=== PATIENT | male | born 1970 | race Caucasian/White ===

== ENCOUNTER 2019-08-03 12:18 | Inpatient (IN) ==
[2019-08-03] MEDS ORDERED: SODIUM CHLORIDE 0.9% IVPB ONE (14:44)
[2019-08-03] MEDS ORDERED: ANTIVENIN CROTALIDAE FAB IVPB ONE (14:44)
[2019-08-03] MEDS ORDERED: *HR* FentaNYL (PF) 100 MCG/2 ML VIAL IVP PRN (14:52)
[2019-08-03 15:22] LABS: Basophils % 0.3 %; Hematocrit 42.1 % (37.5-50.1); Hemoglobin 14.7 g/dL (12.9-16.9); Immature Granulocytes % 0.2 % (0-4); Lymphocytes # 0.7 K/mcL (0.6-4.6); Lymphocytes % 5.4 %; Mean Corpuscular HGB Conc 34.9 g/dL (31.6-35.5); Mean Corpuscular Hemoglobin 31.2 pg (28.0-33.3); Mean Corpuscular Volume 89.4 fL (83.0-100.0); Mean Platelet Volume 9.3 fL (9.4-12.4); Monocytes # 0.1 K/mcL (0.0-1.3); Monocytes % 0.7 %; Neutrophils # 11.5 K/mcL (1.6-8.9); Platelet Count 274 K/mcL (140-400); Red Blood Count 4.71 M/mcL (4.19-5.50); Red Cell Distribution Width 12.7 % (11.5-14.5); Segmented Neutrophils % 93.4 %; White Blood Count 12.3 K/mcL (4.3-11.1)
[2019-08-03] MEDS ORDERED: EPINEPHrine 1 MG/ML VIAL IM PRN (15:23)
[2019-08-03 15:33] LABS: Prothrombin Time 11.3 Seconds (9.4-12.1)
--- NOTE | 2019-08-03 16:35 | Orthopedic Consult Note ---
Date of Encounter: 08/03/19 Time of Encounter: 16:24 Assessment and Plan (1) Paresthesias in right hand Current Visit: Yes Status: Acute (2) Venomous snake bite Current Visit: Yes Status: Acute Qualifiers: Encounter type: initial encounter Injury intent: accidental or unintentional Qualified Code(s): T63.001A - Toxic effect of unspecified snake venom, accidental (unintentional), initial encounter History of Present Illness Chief complaint: right finger snake bite HPI: Mr. Smith is a 49 year old male presented to [facility] after being bitten by confirmed Copperhead snake [id number] this morning while working on his boss's property in [place], [place]. He states they immediately headed to the hospital and he received first dose of antivenom at noon. He then was transferred here to [facility] and is about to receive second antivenom dose. He states that he has history of meth use last used 3 weeks ago. He states that he drank 2 tallboys last night, but has been NPO since bite this morning with exception of ice chips. Patient denies history of snake bites Denies recent tatoos Denies history of IV drug abuse. *Nurse states on arrival at 2pm that patient had sensation to finger and had a white quentin to the finger. States darkening of tissue is rapidly onset over the past 2 hours. On exam right index finger with blackened tissue noted to DIP joint palmar aspect. Blood filled appearing blister noted to lateral right index finger with puncture site centrally. Blister measures appx 1.5cm diameter. Blackened tissue with ecchymosis extending circumferentially from blister nonblanching discoloration appx 1cm out from blister margin. Patient states feels pressure, but no fine touch to distal phalanx and middle phalanx. Exquisitely tender to palpation of the proximal phalanx of the finger. Motion very limited on active and passive. Tender to palpation the palm and volar wrist centrally. No discoloration noted with exception as noted above to distal and middle phalanx. No drainage noted. Wrist motion intact. Elbow motion intact Patient with recent confirmed copperhead snake bite to the right index finger Concern for active tissue necrosis despite antivenom administration Case discussed with Dr. Raphael Continue NPO Case booked with surgery CHG bath ordered. Possible incision and drainage of the finger - await obtaining consent until Dr. Raphael able to personally speak with and examine patient Thank you for consultation. Please reach out with any further questions or concerns regarding patient's orthopedic health. Past Med Surg Social Fam HX - Past Medical History Medical history: kidney stones, thyroid disease Additional medical history: pancreatitis Psychiatric history: PTSD - Past Surgical History Surgical History: orthopedic, other (Lumbar laminectomy) Additional surgical history: Laminectomy low back - Social History Smoking Status: Current every day smoker Packs per day: 11/26 Smokeless Tobacco Status: No Alcohol use: none Drug use: marijuana, methamphetamine Medications and Allergies Levothyroxine [Synthroid] 88 mcg PO DAILY 08/03/19 [History] Allergy/AdvReac Type Severity Reaction Status Date / Time No Known Allergies Allergy Verified 06/09/17 23:43 All Systems Reviewed: The remainder of the systems were reviewed and are negative Physical Exam - Constitutional Vitals: Temp Pulse Resp BP Pulse Ox 97.7 F 84 17 147/93 95 08/03/19 16:13 08/03/19 16:13 08/03/19 16:13 08/03/19 16:13 08/03/19 16:13 Results - Labs Result Diagrams: 08/03/19 15:08 Labs: Abnormal lab results WBC 12.3 K/mcL (4.3-11.1) H 08/03/19 15:08 MPV 9.3 fL (9.4-12.4) L 08/03/19 15:08 Neutrophils # 11.5 K/mcL (1.6-8.9) H 08/03/19 15:08 APTT 38.0 Seconds (26.0-36.0) H 08/03/19 15:08 Fibrinogen 431 mg/dL (169-393) H 08/03/19 15:08 H & H 08/03/19 Range/Units 15:08 Hgb 14.7 (12.9-16.9) g/dL Hct 42.1 (37.5-50.1) % All other labs normal. Consult Discharge Plan - Plan Referrals: NONE,PCP [Primary Care Provider] -
[2019-08-03] MEDS ORDERED: Naloxone 0.4 MG/ML INJ IVP PRN (16:52)
[2019-08-03] MEDS ORDERED: Ondansetron 4 MG/2 ML VIAL IVP PRN (16:52)
[2019-08-03] MEDS ORDERED: Acetaminophen 325 MG TABLET PO PRN (16:52)
[2019-08-03] MEDS ORDERED: Ringers Solution, Lactated 1,000 ML IVC SCH (17:00)
--- NOTE | 2019-08-03 17:25 | Internal Med History&Physical ---
<Vijay Mondragon S - Last Filed: 08/03/19 22:04> Date of Encounter: 08/03/19 Time of Encounter: 15:30 Internal Medicine - H&P: HPI Chief complaint: snake bite Admitted From: Hospital to Hospital Transfer Plans for Post Hospital Care: Home History of present illness: Mr. Smith is a 49 year old right-handed male without significant past medical history who suffered a snakebite at approximately 0915 this morning. He states that he was moving wood from a woodpile, reached under a board and felt something bite him on the index finger of his right hand. He was taken immediately to the [facility] ED because snakebite was suspected. He had significant pain and edema in the finger, reporting that the finger was significantly swollen to the MCP within 5 minutes, and that swelling progressed down his hand rapidly. The patient's boss went back to the site where he found the snake still under the same log, killed it and sent photographs to the patient in the ED. The poison control center was contacted, and with their advisement, the snake was identified as a copperhead, and 4 vials of crofab were administered starting at 12:00. he was subsequently transferred to our facility and admitted to 2N. He had continuous, worsening pain in the R upper extremity which was moderately well controlled with narcotic pain medications on my exam at 15:30. At this time, the patient reported numbness and inability to bend the bitten finger, and a large dark blister forming at one of the puncture sites, as well as pain and swelling in the remainder of the R hand, progressing up his arm. The Orthopedic Surgery PA evaluated the patient at the conclusion of my exam and Contacted Dr Raphael, who saw the patient at the bedside shortly thereafter. In spite of the first infusion of crofab, his swelling continued to spread up his arm, and a second bolus of 4 vials was started at 14:44. During this infusion, the edema stopped spreading, and began to gradually remit throughout the R arm. The patient reports a psychiatric history significant for schizophrenia, PTSD, and bipolar disorder, and reports that he stopped taking his medications for these conditions 4 days ago, as he didn't like how they made him feel. Meds stopped include: * Sumatriptan 50mg * Lamotrigine 25mg * [place] 600mg * Fluoxetine 20mg * Quetiapine 200mg FHx: denies known significant family medical history SurgHx: reports pinning of fractured R thumb, orhtopedic surgery of his L shoulder and knee, and records review revealed lumbar laminectomy. Social Hx: occasional smoker, frequent EtOH, occasional methamphetamine use never by injection, and no history of IV drugs. stated recent [facility]-[place] stay in [place]. Past Med Surg Social Fam HX - Past Medical History Medical history: kidney stones, thyroid disease Additional medical history: pancreatitis Psychiatric history: bipolar, PTSD, schizophrenia - Past Surgical History Surgical History: orthopedic, other (Lumbar laminectomy) Additional surgical history: Laminectomy low back - Social History Smoking Status: Current every day smoker Packs per day: 11/26 Smokeless Tobacco Status: No Alcohol use: none Drug use: marijuana, methamphetamine Internal Medicine - H&P: Meds Levothyroxine [Synthroid] 88 mcg PO DAILY 08/03/19 [History] Acetaminophen [Tylenol] 650 mg PO Q6HR PRN tablet 08/05/19 [Rx] Amoxicillin/Clavulanate [Augmentin] 875 mg PO BIDWM #15 tablet 08/05/19 [Rx] HYDROcodone/Acet 5/325 mg [[place] 5-325 mg] 1 tab PO Q6H PRN 3 Days #15 tab 08/05/19 [Rx] Allergy/AdvReac Type Severity Reaction Status Date / Time No Known Allergies Allergy Verified 06/09/17 23:43 All Systems PM: A 10-system review of systems was performed and is negative for pertinent findings except as documented above in the HPI. - Constitutional Constitutional: no chills, no fever(s), no weakness - EENT Eyes: no blurry vision, no diplopia Ears: no ear pain, no tinnitus Nose, mouth and throat: no dysphagia, no lip swelling Additional comments: Denies numbness or tingling of the lips and mouth - Cardiovascular Cardiovascular ROS IM: no chest pain, no dyspnea, no palpitations - Respiratory Respiratory: no cough, no dyspnea - Gastrointestinal Gastrointestinal: no abdominal pain, no constipation, no diarrhea, no hematochezia, no melena, no vomiting - Genitourinary Genitourinary ROS male: no difficulty urinating - Musculoskeletal Musculoskeletal ROS IM: no muscle weakness, no numbness, no tingling Additional comments: except as stated in HPI - Neurological Neurological ROS: no abnormal speech - Psychiatric Psychiatric: no auditory hallucinations, no hallucinations, no suicidal ideation, no visual hallucinations - Constitutional Vitals: Temp Pulse Resp BP Pulse Ox 97.7 F 84 17 147/93 95 08/03/19 16:13 08/03/19 16:13 08/03/19 16:13 08/03/19 16:13 08/03/19 16:13 Exam: Gen: Awake and alert, mild distress, well-nourished Head: Normocephalic, atraumatic Eyes: EOMI, no scleral icterus ENT: Mucous membranes moist, CV: S1-S2 present, regular at a rate of approximately 80, no murmurs rubs or gallops Pulm: CTAB, not tachypneic, no respiratory distress, no increased work of breathing Abd: Soft, nontender to palpation, nondistended, no rebound or guarding. Bowel sounds present EXT: Grossly intact motor strength in all 4 extremities, no lower extremity edema, no distal cyanosis or pallor, except as noted in detailed hand exam below Skin: Warm, dry, intacct, no rashes or lesions noted, except as noted below Neuro: Cranial nerves II-XII grossly intact, no focal neurologic deficits Psych: normal mood and affect, Answers questions with intact judgement, appropriate insight, and linear thought - Expanded Upper Extremities Exam Elbow exam: Present: full ROM, swelling Forearm wrist exam: Present: swelling (significant pitting edema covering the entire forearm and the distal upper arm. numerous prior skin-marker delineations of edema noted from the base of the affected finger to the distal upper extremity) Hand wrist exam: Present: swelling (marked edema of the entire hand. worst on the index finger of that hand. bullous lesions as noted below. from the PIP to the finger tip was significantly tight, pale, and numb on inspection. otherwise, sensation was intact throughout. ). Absent: crepitus, deformity Hand L/R front image: 1 - Bullous lesion filled with cloudy, dark material. Irregular, asymmetric shape with well-defined borders, approximately 1cm x 1.5cm 2 - second, smaller bullous lesion. 2-4mm in size Neuro motor exam: Present: fingers 2-5 abduction intact, thumb adduction intact, thumb IP flexion intact, thumb opposition intact, wrist extension intact Neurosensory exam: Present: median nerve intact, radial nerve intact, ulnar nerve intact Internal Med - H&P Results - Labs CBC & Chem 7: 08/03/19 15:08 Labs: Short CBC 08/03/19 Range/Units 15:08 WBC 12.3 H (4.3-11.1) K/mcL Hgb 14.7 (12.9-16.9) g/dL Hct 42.1 (37.5-50.1) % Plt Count 274 (140-400) K/mcL Neutrophils # 11.5 H (1.6-8.9) K/mcL - EKG Data -: EKG Interpreted by Myself - EKG Data Prior EKG available for review: no EKG comments: EKG performed 10-01-19 at 17:25 shows regular sinus rhythm at a rate of 77 beats a minute. There is mild left axis deviation. WV interval is 172, QRS of 85, QTC is 421. T-wave inversions are present in lead III, and there are Q waves measuring 1.5mm in lead II and 2mmin aVF. There are no hyperacute T waves, nor is there T wave flattening, and no ST abnormalities are present. Normal R wave progression. Left axis deviation with normal QRS duration raises concern of left anterior fascicular block, however lack of characteristic RS morphology in II and aVF may represent incomplete LAFB. - Assessment and Plan (1) Venomous snake bite Status: Acute Assessment and plan: Patient responded to second bolus of 4 vials of CroFab. Coags and fibrinogen were initally abnormal, with PTT peaking at 38 and fibrinogen peaking at 431. these have subsequently normalized CBC showed no evidence of thrombocytopenia Dr Raphael performed bedside incision and drainage of the bullous lesions previously described, with subsequent resolution of the pallor and numbness of the bitten finger. * Maintenance therapy of 2 vials CroFab Q6Hr x3 as per manufacurerer's and Poison control's recommendations * Repeat coags and fibrinogen 6 hours from normalization, and continue to follow QAM * Repeat CBC QAM to monitor for delayed thrombocytopenia, which has been reported as long as 2 weeks after envenomation and treatment * Prophylactic Unasyn * Pain control with fentanyl and oxycodone Contributions of poison control, pharmacy, and orthopedic surgery greatly appreciated. Qualifiers: Encounter type: initial encounter Injury intent: accidental or unintentional Qualified Code(s): T63.001A - Toxic effect of unspecified snake venom, accidental (unintentional), initial encounter (2) Paresthesias in right hand Status: Resolved Assessment and plan: resolved after I&D as noted above (3) History of post traumatic stress disorder Status: Chronic Assessment and plan: As noted in HPI, Pt stopped taking all psychoactive medications 4 days ago. * Nursing is aware to monitor for s/s of complications of abrupt cessation of psychotropics, which may include: * nausea, * vertigo, * anxiety, * manic relapse, * mood instability, * tremors, * sleep disturbances, * headaches, * Patient agreed to one-time dose of seroquel tonight. (4) Hx of schizophrenia Status: Chronic Assessment and plan: Continue to monitor for s/s of schizophrenia: * hallucinations * Delusions * Disorganized thought * apathy * affect flattening * cognitive impairment * catatonia - Summary of Assessment and Plan Summary of Assessment and Plan: * Maintenance CroFab 2 vials Q6Hr x3 * Monitoring of coags and thrombocyte count * Pain management with oxycodone and fentanyl * Monitor for sequelae of psychotropic drug cessation - Time Spent With Patient Total time spent is greater than 50% in coordination of care (as documented) at patient's floor/unit and/or counseling patient: <Ricardo Reid Ana - Last Filed: 08/06/19 17:37> Date of Encounter: 08/03/19 Internal Medicine - H&P: HPI History of present illness: Mr. Smith is a 49 year old male All Systems PM: A 10-system review of systems was performed and is negative for pertinent findings except as documented above in the HPI. - Constitutional Vitals: Temp Pulse Resp BP Pulse Ox 97.7 F 84 17 147/93 95 08/03/19 16:13 08/03/19 16:13 08/03/19 16:13 08/03/19 16:13 08/03/19 16:13 Internal Med - H&P Results - Labs CBC & Chem 7: 08/05/19 01:11 08/05/19 01:11 Labs: Short CBC 08/03/19 Range/Units 15:08 WBC 12.3 H (4.3-11.1) K/mcL Hgb 14.7 (12.9-16.9) g/dL Hct 42.1 (37.5-50.1) % Plt Count 274 (140-400) K/mcL Neutrophils # 11.5 H (1.6-8.9) K/mcL - Assessment and Plan (1) Venomous snake bite Status: Resolved Qualifiers: Encounter type: subsequent encounter Injury intent: accidental or unintentional Qualified Code(s): T63.001D - Toxic effect of unspecified snake venom, accidental (unintentional), subsequent encounter - Time Spent With Patient Total time spent is greater than 50% in coordination of care (as documented) at patient's floor/unit and/or counseling patient: - Attending Attestation I examined this patient and my medical decision-making was reviewed with the Resident Physician on 08/03/19. I agree with the documented findings, disposition and treatment plan as described except to the extent set forth below. 49 y/o male transferred from [place] due to copperhead snake bite. Mr Smith was moving a wood pile and was bitten by copperhead. Given antivenom at [place] and sent here. Has had progression of swelling and is receiving second dose of antivenom. Exam Alert Comfortable Mucus membranes dry Blister R index with swelling. Not tachycardic I/P 1. Snakebite - antivenom. Ortho consult.
--- NOTE | 2019-08-03 18:50 | Orthopedic Consult Note ---
Date of Encounter: 08/03/19 Time of Encounter: 18:50 Assessment and Plan (1) Venomous snake bite Current Visit: Yes Status: Acute I did have a long discussion with the patient regarding the diagnosis. He does have snake bite injury to the right index finger. He is currently receiving the appropriate anti-venom. There is no compartment syndrome at this point though he will require careful observation. My recommendation is aggressive elevation and he is placed in an IV pole sling. The blisters were unroofed and there is no purulence. He is on prophylactic antibiotics, Unasyn, which I agree with. We will follow clinically and from a laboratory standpoint area and I do not believe he needs any urgent debridement or decompression of the index finger, though he may need this in the future should symptoms worsen. Currently the patient is very comfortable and his IV pole sling. He is agreeable to the plan of observation with aggressive elevation. We will follow clinically with you. I have reviewed each of the pertinent components of this chart and any other pertinent medical component(s) including but not limited to pertinent applica tion of the chief complaint, history of present illness, current medication, medical history, allergies, family history, medical history, surgical history, social history, review of systems, vital signs, and any other portion of the pertinent patient medical record directly or indirectly involved with this patient care that is pertinent based on my medical decision process. KIMBERLI Srivastava Qualifiers: Encounter type: initial encounter Injury intent: accidental or unintentional Qualified Code(s): T63.001A - Toxic effect of unspecified snake venom, accidental (unintentional), initial encounter History of Present Illness HPI: Mr. Smith is a 49 year old male currently admitted to the hospitalist after being transferred from [facility]. He is bitten by a copperhead snake earlier this morning. He did subsequently develop right index finger swelling and pain and was admitted to our facility where he is receiving antivenom, CroFab, and is getting his second is currently. There is concern regarding the right index finger due to swelling and blistering and possible concern for a digital compartment syndrome. On my evaluation the patient complains of generalized pain to the right index finger localized mainly to the portion of the finger distal to the proximal interphalangeal joint. The pain is worse with use and movement and better with rest. The patient denies any other injuries other than the snake bite. He does complain of altered sensation at the tip of the digit which normalizes at the proximal interphalangeal joint. No other numbness, tingling, or any other associated signs or symptoms or modifying factors. He does note mild or pain in the hand and wrist region. Past Med Surg Social Fam HX - Past Medical History Medical history: kidney stones, thyroid disease Additional medical history: pancreatitis Psychiatric history: PTSD - Past Surgical History Surgical History: orthopedic, other (Lumbar laminectomy) Additional surgical history: Laminectomy low back - Social History Smoking Status: Current every day smoker Packs per day: 11/26 Smokeless Tobacco Status: No Alcohol use: none Drug use: marijuana, methamphetamine Medications and Allergies FLUoxetine HCl [Prozac] 20 mg PO DAILY 08/03/19 [History] Ibuprofen 800 mg PO TID PRN 08/03/19 [History] Levothyroxine [Synthroid] 88 mcg PO DAILY 08/03/19 [History] [place] Carbonate 600 mg PO TID 08/03/19 [History] Quetiapine Fumarate 200 mg PO HS 08/03/19 [History] SUMAtriptan succinate [Imitrex] 25 mg PO Q2H PRN 08/03/19 [History] Zolpidem Tartrate 5 mg PO HS PRN 08/03/19 [History] lamoTRIgine [Lamictal] 100 mg PO BID 08/03/19 [History] Allergy/AdvReac Type Severity Reaction Status Date / Time No Known Allergies Allergy Verified 06/09/17 23:43 All Systems Reviewed: Constitutional -The patient denies any fevers, chills, or feelings of illness Neurologic -The patient admits to numbness, tingling, and burning pains as described in the history of present illness. Physical Exam - Constitutional Vitals: Temp Pulse Resp BP Pulse Ox 97.7 F 84 17 147/93 95 08/03/19 16:13 08/03/19 16:13 08/03/19 16:13 08/03/19 16:13 08/03/19 16:13 CONSTITUTIONAL -Vitals reviewed -The patient is well developed, well nourished, well groomed PSYCHIATRIC -Fully alert and oriented -Pleasant mood RIGHT UPPER EXTREMITY Inspection shows mild to moderate generalized swelling of the right index finger. There is blistering along the dorsal aspect of the index finger associated with a puncture as well as the volar PIP joint region, also associated with a small puncture wound. There is no surrounding cellulitis, however there is blistering in these regions. The blisters are filled with bloody material. They are unroofed uneventfully area the base of the wounds are healthy in appearance. The patient can grossly flex and extend the index finger with some limitation due to pain and swelling but without significant apprehension. Minimal swelling of the hand and no swelling of the wrist or forearm. No redness or streaking. Compartments of the arm, forearm, and hand are all soft and compressible. The patient can actively flex and extend all digits, extend the thumb, cross the index and long fingers, make an okay sign, and oppose the thumb. The fingertips are all grossly sensate and well- perfused, and the radial artery pulse is 2+. Diagnostic Imaging: I did personally review and interpret x-rays of the hand do not show any fractures or dislocations of the index finger. Mild generalized swelling. Results - Labs Result Diagrams: 08/03/19 15:08 Labs: Abnormal lab results WBC 12.3 K/mcL (4.3-11.1) H 08/03/19 15:08 MPV 9.3 fL (9.4-12.4) L 08/03/19 15:08 Neutrophils # 11.5 K/mcL (1.6-8.9) H 08/03/19 15:08 APTT 36.8 Seconds (26.0-36.0) H 08/03/19 16:28 Fibrinogen 431 mg/dL (169-393) H 08/03/19 15:08 H & H 08/03/19 Range/Units 15:08 Hgb 14.7 (12.9-16.9) g/dL Hct 42.1 (37.5-50.1) % All other labs normal. Consult Discharge Plan - Plan Referrals: NONE,PCP [Primary Care Provider] -
[2019-08-03 19:39] LABS: Prothrombin Time 11.2 Seconds (9.4-12.1)
[2019-08-03 19:41] LABS: Activated Partial Thrombo Time 35.7 Seconds (26.0-36.0)
[2019-08-03] MEDS: Ampicillin/Sulbactam 1,500 MG in 0.9 % Sodium Chloride Mini Bag 100 ML IVPB SCH (20:28)
[2019-08-03] MEDS: ANTIVENIN CROTALIDAE FAB IVPB SCH (23:05)
[2019-08-03] MEDS: SODIUM CHLORIDE 0.9% IVPB SCH (23:05)
[2019-08-04] MEDS: Ampicillin/Sulbactam 1,500 MG in 0.9 % Sodium Chloride Mini Bag 100 ML IVPB SCH ×4 (00:44→18:08)
[2019-08-04 01:36] LABS: Alanine Aminotransferase 13 Units/L (7-52); Albumin/Globulin Ratio 1.5 (1.1-2.2); Alkaline Phosphatase 85 Units/L (34-104); Aspartate Amino Transferase 22 Units/L (13-39); BUN/Creatinine Ratio 30 (6-26); Bilirubin,Total 0.3 mg/dL (0.3-1.0); Blood Urea Nitrogen 31 mg/dL (6-20); Carbon Dioxide 25 mEq/L (23-29); Chloride 99 mEq/L (98-107); Globulin 2.7 g/dL (2.4-3.5); Glucose 200 mg/dL (70-105); Osmolality,Calculated 288 (280-300); Potassium 4.6 mEq/L (3.5-5.1); Sodium 133 mEq/L (136-145); Total Protein 6.7 g/dL (6.4-8.9); eGFR For African Americans > 60 (> 60); eGFR For Non-African Americans > 60 (> 60)
[2019-08-04 01:37] LABS: Basophils % 0.1 %; Hematocrit 38.2 % (37.5-50.1); Immature Granulocytes % 0.5 % (0-4); Lymphocytes # 0.8 K/mcL (0.6-4.6); Lymphocytes % 5.9 %; Mean Corpuscular HGB Conc 33.2 g/dL (31.6-35.5); Mean Corpuscular Hemoglobin 30.3 pg (28.0-33.3); Mean Corpuscular Volume 91.2 fL (83.0-100.0); Mean Platelet Volume 9.9 fL (9.4-12.4); Monocytes # 0.3 K/mcL (0.0-1.3); Monocytes % 2.1 %; Neutrophils # 12.8 K/mcL (1.6-8.9); Platelet Count 246 K/mcL (140-400); Red Blood Count 4.19 M/mcL (4.19-5.50); Red Cell Distribution Width 12.8 % (11.5-14.5); Segmented Neutrophils % 91.4 %
[2019-08-04 01:43] LABS: Hemoglobin 12.7 g/dL (12.9-16.9)
[2019-08-04 01:45] LABS: Prothrombin Time 11.3 Seconds (9.4-12.1)
[2019-08-04 01:48] LABS: Activated Partial Thrombo Time 32.1 Seconds (26.0-36.0)
[2019-08-04] MEDS: SODIUM CHLORIDE 0.9% IVPB SCH ×2 (05:02→10:56)
[2019-08-04] MEDS: ANTIVENIN CROTALIDAE FAB IVPB SCH ×2 (05:02→10:56)
--- NOTE | 2019-08-04 07:49 | Orthopedics Progress Note ---
Date of Encounter: 08/04/19 Time of Encounter: 07:47 - Assessment and Plan (1) Venomous snake bite Current Visit: Yes Status: Inactive Qualifiers: Encounter type: initial encounter Injury intent: accidental or unintentional Qualified Code(s): T63.001A - Toxic effect of unspecified snake venom, accidental (unintentional), initial encounter Subjective Interval history: S: Improved pain to the right index finger overnight. He has been elevating with an IV pole sling. O: Afebrile on the vital signs are stable Right index finger with improved swelling compared to yesterday. Beds of the decompressed blisters appear healthy. No purulence No cellulitis He can grossly flex and extend the index finger with stiffness due to pain and swelling but without significant apprehension. The fingertips are all grossly sensate and well-perfused, and the radial artery pulse is 2+. A: Snake bite to the right index finger P: At this point the patient seems to have improved clinically. Swelling does appear less today. Continue with prophylactic antibiotics, currently on Unasyn Currently no plans for surgical debridement. I will reevaluate again today clinically. Objective Vital signs: Vital Signs Temp Pulse Resp BP Pulse Ox 08/04/19 07:26 98.0 F 96 14 131/77 89 08/04/19 03:59 98 F 87 19 117/72 90 08/03/19 23:50 97.9 F 112 18 136/72 92 08/03/19 20:32 99 08/03/19 18:50 98.2 F 80 16 125/83 92 08/03/19 16:13 97.7 F 84 17 147/93 95 08/03/19 15:52 98.1 F 79 16 156/85 94 08/03/19 15:42 97.8 F 79 16 155/87 95 08/03/19 14:23 98.2 F 81 17 162/88 97 08/03/19 14:16 97 Intake and Output 08/03/19 08/03/19 08/04/19 15:59 23:59 07:59 Intake Total 5 / 1270 1265 / 1270 600 / 600 Output Total 380 / 380 1200 / 1200 Balance 5 / 890 885 / 890 -600 / -600 Intake: IV Fluids 5 / 350 345 / 350 600 / 600 Unasyn 1,500 MG In 0.9 % Sodium 100 / 100 100 / 100 Chloride (Mini-Bag +) 100 ML @ 200 mls/hr IVPB Q6H SHARON Rx#: [id number] CroFab 2 EACH In 0.9 % Sodium 5 / 250 245 / 250 500 / 500 Chloride 250 ML @ 250 mls/hr IVPB Q6H SHARON Rx#:[id number] Oral 920 / 920 Output: Urine 380 / 380 1200 / 1200 Other: Meal Dinner Percent of Meal Consumed 100% # Voids 1 1 Weight 78.8 kg 78.9 kg Patient Weight 08/04/19 23:59 Weight 78.9 kg - Labs CBC & BMP: 08/04/19 00:40 08/04/19 00:40 Labs: Abnormal lab results WBC 14.0 K/mcL (4.3-11.1) H 08/04/19 00:40 Hgb 12.7 g/dL (12.9-16.9) L D 08/04/19 00:40 MPV 9.3 fL (9.4-12.4) L 08/03/19 15:08 Neutrophils # 12.8 K/mcL (1.6-8.9) H 08/04/19 00:40 APTT 36.8 Seconds (26.0-36.0) H 08/03/19 16:28 Fibrinogen 431 mg/dL (169-393) H 08/03/19 15:08 Sodium 133 mEq/L (136-145) L 08/04/19 00:40 BUN 31 mg/dL (6-20) H 08/04/19 00:40 BUN/Creatinine Ratio 30 (6-26) H 08/04/19 00:40 Glucose 200 mg/dL (70-105) H 08/04/19 00:40 Tira < 0.1 mEq/L (0.6-1.2) L 08/04/19 00:40 Consult Discharge Plan - Plan Referrals: NONE,PCP [Primary Care Provider] -
--- NOTE | 2019-08-04 11:39 | Psychiatry History & Physical ---
Date of Encounter: 08/04/19 Time of Encounter: 10:45 History of Present Illness Patient Stated Chief Complaint: I got bit Medicare Admission Attestation: For traditional Medicare patients the provided hospital inpatient services are reasonable and necessary and in the case of services not specified as inpatient-only under 42 CFR 419.22 (n), that they are appropriately provided as inpatient services in accordance 42 CFR 412.3. For Critical Access Hospital the patient may reasonably be expected to be discharged or transferred to a hospital within 96 hours after admission to the Critical Access Hospital. Admitted From: Emergency Dept Plans for Post Hospital Care: Home History of Present Illness: Mr. Smith is a 49 year old right-handed male without significant past medical history who suffered a snakebite at approximately 0915 this morning. He states that he was moving wood from a woodpile, reached under a board and felt something bite him on the index finger of his right hand. He was taken immediately to the [facility] ED because snakebite was suspected. He had significant pain and edema in the finger, reporting that the finger was significantly swollen to the MCP within 5 minutes, and that swelling progressed down his hand rapidly. The patient's boss went back to the site where he found the snake still under the same log, killed it and sent photographs to the patient in the ED. The poison control center was contacted, and with their advisement, the snake was identified as a copperhead, and 4 vials of crofab were administered starting at 12:00. he was subsequently transferred to our facility and admitted to . He had continuous, worsening pain in the R upper extremity which was moderately well controlled with narcotic pain medications on my exam at 15:30. At this time, the patient reported numbness and inability to bend the bitten finger, and a large dark blister forming at one of the puncture sites, as well as pain and swelling in the remainder of the R hand, progressing up his arm. The Orthopedic Surgery PA evaluated the patient at the conclusion of my exam and Contacted Dr Raphael, who saw the patient at the bedside shortly thereafter. In spite of the first infusion of crofab, his swelling continued to spread up his arm, and a second bolus of 4 vials was started at 14:44. During this infusion, the edema stopped spreading, and began to gradually remit throughout the R arm. The patient reports a psychiatric history significant for schizophrenia, PTSD, and bipolar disorder, and reports that he stopped taking his medications for these conditions 4 days ago, as he didn't like how they made him feel. Meds stopped include: * Sumatriptan 50mg * Lamotrigine 25mg * Polson 600mg * Fluoxetine 20mg * Quetiapine 200mg * This morning we discussed the medications that he had stopped. He said that he had not been taking them consistently and that now that he is off street drugs he no longer is having the mood swings or depression or hearing or seeing things that he was previously related to his substance use. He says that he has discussed this with his outpatient providers and they are in support of stopping the medications and following back up with them if need be in the future. He currently says his mood is good, he is lighthearted and makes jokes about the snakebite, he denies suicidal or homicidal thoughts, ideations, or plans. He has no manic symptoms or depressive symptoms. He does not have any psychotic symptoms. Past Med Surg Social Fam HX - Past Medical History Medical history: kidney stones, thyroid disease - Past Psychiatric History Psychiatric history: Reports: bipolar. Denies: prior suicide attempt, previous psychiatric hospitalization Past psychiatric history details: Patient reports he has never been a psychiatric hospital. He has been following with integrated services and he knows he can go back there if his symptoms worsen without the medications. He has no prior psychiatric hospitalizations. He has no history of suicide attempts. 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 Occupational status: employed Current living situation: Home Activity Level: Independent ambulation Recent Out of Country Travel Within the Last 8 Weeks: No Exposure or Possible Exposure to Illness During Travel: No Medications & Allergies FLUoxetine HCl [Prozac] 20 mg PO DAILY 08/03/19 [History] Ibuprofen 800 mg PO TID PRN 08/03/19 [History] Levothyroxine [Synthroid] 88 mcg PO DAILY 08/03/19 [History] Polson Carbonate 600 mg PO TID 08/03/19 [History] Quetiapine Fumarate 200 mg PO HS 08/03/19 [History] SUMAtriptan succinate [Imitrex] 25 mg PO Q2H PRN 08/03/19 [History] Zolpidem Tartrate 5 mg PO HS PRN 08/03/19 [History] lamoTRIgine [Lamictal] 100 mg PO BID 08/03/19 [History] Allergy/AdvReac Type Severity Reaction Status Date / Time No Known Allergies Allergy Verified 06/09/17 23:43 Review of Systems Constitutional: Reports: chills Eyes: Denies: eye pain Ears, Nose, Throat: Denies: ear pain Cardiovascular: Denies: chest pain Respiratory: Denies: cough Gastrointestinal: Denies: abdominal pain Genitourinary male: Denies: urgency Musculoskeletal: Reports: joint swelling, joint pain Integumentary: Reports: lesions Neurological: Denies: headache Psychiatric: Denies: depression, anxiety, abnormal sleep pattern, suicidal ideation, change in appetite, homicidal ideation, auditory hallucinations, visual hallucinations Endocrine: Reports: fatigue Hematologic/Lymphatic: Denies: easy bleeding Allergic/Immunologic: Denies: facial swelling Exam - HEENT Head exam IM: Present: atraumatic Eye exam IM: Present: EOMI ENT exam IM: Present: mucous membranes moist - Neurological Neurological exam: Present: CN II-XII intact (Grossly) - Respiratory Respiratory exam IM: Absent: respiratory distress - GI/Abdominal GI/Abdominal exam IM: Present: no peritoneal signs - Extremities Extremities exam IM: Present: joint swelling - Skin Skin exam IM: Present: abrasion - Constitutional Vitals: Temp Pulse Resp BP Pulse Ox 97.8 F 82 14 109/65 90 08/04/19 11:05 08/04/19 11:05 08/04/19 11:05 08/04/19 11:05 08/04/19 11:05 General appearance: age & developmentally appropriate - Musculoskeletal Gait: other (In bed) Station: relaxed Strength & Tone: normal for patient - Psychiatric Patient Orientation: Yes Person, Yes Time, Yes Place, Yes Circumstance Level of alertness: Alert Behavior: calm, cooperative Psychomotor activity: Normal Eye Contact: Maintains Eye Contact Mood Description: Euthymic/stable Patient description of mood: Fine Affect description: congruent with mood, full range Speech Volume: Normal Speech pattern: normal rate, normal rhythm, normal tone, fluent, spontaneous Language & Vocabulary: consistent with education Thought Process: Linear, Goal Oriented Thought Content: No Suicidal ideation, No Homicidal ideation, No Overt delusions Perceptual Disturbances: No Auditory hallucinations, No Visual hallucinations Attention Span Ability: Capable of Focused Attention Memory Description: Grossly Intact Patient Reliability: Reliable Historian Fund of knowledge: Yes abstraction ability, Yes average, Yes aware of current events Intelligence Estimate: Average Judgment: Good Insight: Full Results - Drug Levels and Toxicology Drug Levels and Toxicology: Drug Levels and Toxicity 08/04/19 00:40 Polson < 0.1 L - Labs Labs: Laboratory Last Values WBC 14.0 K/mcL (4.3-11.1) H 08/04/19 00:40 RBC 4.19 M/mcL (4.19-5.50) 08/04/19 00:40 Hgb 12.7 g/dL (12.9-16.9) L D 08/04/19 00:40 Hct 38.2 % (37.5-50.1) 08/04/19 00:40 MCV 91.2 fL (83.0-100.0) 08/04/19 00:40 MCH 30.3 pg (28.0-33.3) 08/04/19 00:40 MCHC 33.2 g/dL (31.6-35.5) 08/04/19 00:40 RDW 12.8 % (11.5-14.5) 08/04/19 00:40 Plt Count 246 K/mcL (140-400) 08/04/19 00:40 MPV 9.9 fL (9.4-12.4) 08/04/19 00:40 Immature Gran % 0.5 % (0-4) 08/04/19 00:40 Seg Neutrophils % 91.4 % 08/04/19 00:40 Lymphocytes % 5.9 % 08/04/19 00:40 Monocytes % 2.1 % 08/04/19 00:40 Eosinophils % 0.0 % 08/04/19 00:40 Basophils % 0.1 % 08/04/19 00:40 Neutrophils # 12.8 K/mcL (1.6-8.9) H 08/04/19 00:40 Lymphocytes # 0.8 K/mcL (0.6-4.6) 08/04/19 00:40 Monocytes # 0.3 K/mcL (0.0-1.3) 08/04/19 00:40 Eosinophils # 0.0 K/mcL (0.0-0.6) 08/04/19 00:40 Basophils # 0.0 K/mcL (0.0-0.2) 08/04/19 00:40 PT 11.3 Seconds (9.4-12.1) 08/04/19 00:40 INR 1.0 08/04/19 00:40 APTT 32.1 Seconds (26.0-36.0) 08/04/19 00:40 Fibrinogen 355 mg/dL (169-393) 08/03/19 19:16 Sodium 133 mEq/L (136-145) L 08/04/19 00:40 Potassium 4.6 mEq/L (3.5-5.1) 08/04/19 00:40 Chloride 99 mEq/L (98-107) 08/04/19 00:40 Carbon Dioxide 25 mEq/L (23-29) 08/04/19 00:40 BUN 31 mg/dL (6-20) H 08/04/19 00:40 Creatinine 1.02 mg/dL (0.70-1.30) 08/04/19 00:40 Est GFR ( Amer) > 60 (> 60) 08/04/19 00:40 Est GFR (Non-Af Amer) > 60 (> 60) 08/04/19 00:40 BUN/Creatinine Ratio 30 (6-26) H 08/04/19 00:40 Glucose 200 mg/dL (70-105) H 08/04/19 00:40 Calculated Osmolality 288 (280-300) 08/04/19 00:40 Calcium 9.0 mg/dL (8.6-10.3) 08/04/19 00:40 Total Bilirubin 0.3 mg/dL (0.3-1.0) 08/04/19 00:40 AST 22 Units/L (13-39) 08/04/19 00:40 ALT 13 Units/L (7-52) 08/04/19 00:40 Alkaline Phosphatase 85 Units/L (34-104) 08/04/19 00:40 Serum Total Protein 6.7 g/dL (6.4-8.9) 08/04/19 00:40 Albumin 4.0 g/dL (3.5-5.7) 08/04/19 00:40 Globulin 2.7 g/dL (2.4-3.5) 08/04/19 00:40 Albumin/Globulin Ratio 1.5 (1.1-2.2) 08/04/19 00:40 Polson < 0.1 mEq/L (0.6-1.2) L 08/04/19 00:40 Assessment and Plan (1) Hx of schizophrenia Current visit: Yes Status: Chronic Additional Plan: Patient recently stopped his psychotropic medications including lamotrigine, lithium, fluoxetine, and quetiapine. He said he had not been taking all of these or taking them consistently for the last several months, and records show that he last filled lamotrigine and lithium in May. He has been weaning himself off over the last few weeks as he has stopped street drugs of the last couple months and has realize that many of the symptoms he had previously were related to intoxication and withdrawal from street drugs. He has capacity to make informed consent decisions regarding his psychiatric medications. Her inpatient psychiatric hospitalization as he does not have suicidal or homicidal thoughts, ideations, or plans. He is linked with integrated services and understands that he can reach out to them if his symptoms worsen and he wishes to get back on his psychiatric medications in the future. Psychiatry signing off. He said that he had not been taking them consistently and that now that he is off street drugs he no longer is having the mood swings or depression or hearing or seeing things that he was previously related to his substance use. He says that he has discussed this with his outpatient providers and they are in support of stopping the medications and following back up with them if need be in the future. He currently says his mood is good, he is lighthearted and makes jokes about the snakebite, he denies suicidal or homicidal thoughts, ideations, or plans. He has no manic symptoms or depressive symptoms. He does not have any psychotic symptoms. Risks, benefits, side effects, alternatives discussed w/pt: Yes Patient agreeable to treatment: Yes Plans for Post Hospital Care: Home
--- NOTE | 2019-08-04 15:42 | Internal Med Progress Note ---
<Vijay Mondragon S - Last Filed: 08/04/19 15:34> Hospitalist Progress Note - Encounter Date of Encounter: 08/04/19 Time of Encounter: 08:00 - Subjective Interval History: Mr. Smith is a 49-year-old male who was bitten by copperhead snake on the right index finger yesterday, transferred to [facility] from [facility] after receiving 1 dose of 4 vials of CroFab, with continued edema in the affected arm. He received a second dose of 4 vials of CroFab with cessation of the advancement of his edema. Ortho performed a bedside incision, drainage and debridement of pustular lesions at the puncture sites. He has been receiving maintenance dosing of CroFab, 2 vials every 6 hours as indicated by poison control and reiterated in CroFab resident assistant's instructions. Early last night, the patient was becoming slightly agitated. I spoke with the night nurse and together we talked to the patient about taking his usual home dose of Seroquel, which he agreed to. After taking the Seroquel he was able to sleep. On exam this morning, the patient is drowsy, speaking slowly. He reports sleeping well overnight, and reports decreased edema and pain in his hand. He denies any signs or symptoms of withdrawals from nicotine, his psychotropic drugs, or any other new symptoms. He denies any hallucinations or changes in mood Specifically, he denies any chest pain, trouble breathing, blurry vision, double vision, tinnitus, only swallowing or speaking, nausea, vomiting, numbness/tingling/weakness anywhere - Exam Vitals: Temp Pulse Resp BP Pulse Ox 97.8 F 82 14 109/65 90 08/04/19 11:05 08/04/19 11:05 08/04/19 11:05 08/04/19 11:05 08/04/19 11:05 Exam: Gen: Appears drowsy, slow speech and slow movement. Head: Normocephalic, atraumatic Eyes: EOMI, no scleral icterus, pupils 3 mm and equal, reactive to light bilaterally ENT: Mucous membranes moist, CV: S1-S2 present, regular at a rate of approximately 90, no murmurs rubs or gallops Pulm: CTAB, not tachypneic, no respiratory distress, no increased work of breathing Abd: Soft, nontender to palpation, nondistended, no rebound or guarding. EXT: Grossly intact motor strength in all 4 extremities, no lower extremity edema, no distal cyanosis or pallor, see "hand" below Skin: Warm, dry, intact, no rashes or lesions noted, except as noted below Neuro: Cranial nerves II-XII grossly intact, no focal neurologic deficits Psych: somnolent with normal mood and slightly restricted affect, Answers questions with intact judgement, appropriate insight, and linear thought Hand: dressings in place, sites of debridement without erythema, edema, or pururlence. Dependent edema noted in the upper arm secondary to elevation by traction since debridement yesterday - Assessment and Plan (1) Venomous snake bite Current Visit: Yes Status: Resolved Assessment and Plan: Patient received last maintenance dose of CroFab 11 today In discussion with Dr. Smith, it is very unlikely that the patient will need further debridement or surgery Prophylactic antibiotics by IV, currently Unasyn * Continue to monitor overnight for any worsening of edema or pain * If stable, switch IV Unasyn to PO Augmentin and discharged to home tomorrow (2) Hx of schizophrenia Current Visit: Yes Status: Chronic Assessment and Plan: Per my exam this morning, patient seemed to be exhibiting mild psychomotor retardation, moving and speaking slowly In discussion with pharmacy, patient received Seroquel around 9 PM last night, I saw him at approximately 9 a.m. today, so the observed somnolence may be residual effect of the Seroquel * Observation of patient this morning concerning for early negative symptoms of a schizophrenic episode * Psychiatry was consulted, reported their findings were inconsistent with active schizophrenia or any abnormal psychiatric processes * Of note, patient reported to the psychiatrist that he has been intermittently taking his medications for the last month or so * Continuing monitoring the patient for adverse effects secondary to sudden cessation of psychotropic medications (3) History of post traumatic stress disorder Current Visit: Yes Status: Chronic Assessment and Plan: see assessment and plan for history of schizophrenia DVT Prophylaxis: sub-q heparin - Summary of Assessment and Plan Summary of Assessment and Plan: * Continued monitoring for AE's from snake bite * Continue unasyn, switch to PO augmentin tomorrow * DC tomorrow - Time Spent with Patient Total time spent is greater than 50% in coordination of care (as documented) at patient's floor/unit and/or counseling patient: Plan of Care Discussed with: patient Internal Medicine: Result - Labs CBC & Chem 7: 08/04/19 00:40 08/04/19 00:40 Labs: Short CBC 08/04/19 Range/Units 00:40 WBC 14.0 H (4.3-11.1) K/mcL Hgb 12.7 L D (12.9-16.9) g/dL Hct 38.2 (37.5-50.1) % Plt Count 246 (140-400) K/mcL Neutrophils # 12.8 H (1.6-8.9) K/mcL BMP 08/04/19 00:40 Sodium 133 L Potassium 4.6 Chloride 99 Carbon Dioxide 25 BUN 31 H Creatinine 1.02 Glucose 200 H Calcium 9.0 Liver Function 08/04/19 Range/Units 00:40 Total Bilirubin 0.3 (0.3-1.0) mg/dL AST 22 (13-39) Units/L ALT 13 (7-52) Units/L Alkaline Phosphatase 85 (34-104) Units/L Albumin 4.0 (3.5-5.7) g/dL - ABG Interpretation ABG results: PT/INR, D-dimer PT 11.3 Seconds (9.4-12.1) 08/04/19 00:40 Consult Discharge Plan - Plan Referrals: Quyen Okeefe CNP [Advanced Practice Nurse] - 08/11/19 11:00 am <Ricardo Reid - Last Filed: 08/04/19 18:13> Hospitalist Progress Note - Encounter Date of Encounter: 08/04/19 - Exam Vitals: Temp Pulse Resp BP Pulse Ox 98.6 F 82 16 111/63 92 08/04/19 15:42 08/04/19 15:42 08/04/19 15:42 08/04/19 15:42 08/04/19 15:42 - Assessment and Plan (1) Venomous snake bite Current Visit: Yes Status: Resolved - Time Spent with Patient Total time spent is greater than 50% in coordination of care (as documented) at patient's floor/unit and/or counseling patient: Internal Medicine: Result - Labs CBC & Chem 7: 08/04/19 00:40 08/04/19 00:40 Labs: Short CBC 08/04/19 Range/Units 00:40 WBC 14.0 H (4.3-11.1) K/mcL Hgb 12.7 L D (12.9-16.9) g/dL Hct 38.2 (37.5-50.1) % Plt Count 246 (140-400) K/mcL Neutrophils # 12.8 H (1.6-8.9) K/mcL BMP 08/04/19 00:40 Sodium 133 L Potassium 4.6 Chloride 99 Carbon Dioxide 25 BUN 31 H Creatinine 1.02 Glucose 200 H Calcium 9.0 Liver Function 08/04/19 Range/Units 00:40 Total Bilirubin 0.3 (0.3-1.0) mg/dL AST 22 (13-39) Units/L ALT 13 (7-52) Units/L Alkaline Phosphatase 85 (34-104) Units/L Albumin 4.0 (3.5-5.7) g/dL - ABG Interpretation ABG results: PT/INR, D-dimer PT 11.3 Seconds (9.4-12.1) 08/04/19 00:40 - Attending Attestation I examined this patient and my medical decision-making was reviewed with the Resident Physician on 08/04/19. I agree with the documented findings, disposition and treatment plan as described except to the extent set forth below. Mr Smith is currently admitted for venomous snackbite. He remains moderate to high risk due to potential for worsening clinical status. Mr Smith is doing OK. Still swelling but seems better. No fever or chills. No CP or SOB. Exam Alert. Comfortable Mucus membranes dry Heart not tachy. No wheeze. Abd soft. No rash Plan Continue abx. Finish antivenom. <Vijay Mondragon S - Last Filed: 08/04/19 15:34> (1) Venomous snake bite Qualifiers: Encounter type: initial encounter Injury intent: accidental or unintentional Qualified Code(s): T63.001A - Toxic effect of unspecified snake venom, accidental (unintentional), initial encounter <Ricardo Reid - Last Filed: 08/04/19 18:13> (1) Venomous snake bite Qualifiers: Encounter type: subsequent encounter Injury intent: accidental or unintenti onal Qualified Code(s): T63.001D - Toxic effect of unspecified snake venom, accidental (unintentional), subsequent encounter
--- NOTE | 2019-08-04 17:41 | Orthopedics Progress Note ---
Date of Encounter: 08/04/19 Time of Encounter: 19:39 - Assessment and Plan (1) Venomous snake bite Current Visit: Yes Status: Resolved Qualifiers: Encounter type: subsequent encounter Injury intent: accidental or unintentional Qualified Code(s): T63.001D - Toxic effect of unspecified snake venom, accidental (unintentional), subsequent encounter Subjective Interval history: S: The patient is resting comfortably with improved pain to the right index finger O: Afebrile on the vital signs are stable Continued improvement of the right index finger regarding swelling. Moderate tenderness as expected distally with slight altered sensation at the tip. Otherwise neurovascularly intact to the right upper extremity A: Snake bite to the right index finger P: Continue observation and elevation with IV pulse sling. Continue Unasyn for infection prophylaxis Motion exercises to reduce the risk of stiffness Anticipate discharge tomorrow on Augmentin. Objective Vital signs: Vital Signs Temp Pulse Resp BP Pulse Ox 08/04/19 15:42 98.6 F 82 16 111/63 92 08/04/19 11:05 97.8 F 82 14 109/65 90 08/04/19 08:06 93 08/04/19 07:26 98.0 F 96 14 131/77 89 08/04/19 03:59 98 F 87 19 117/72 90 08/03/19 23:50 97.9 F 112 18 136/72 92 08/03/19 20:32 99 08/03/19 18:50 98.2 F 80 16 125/83 92 Intake and Output 08/04/19 08/04/19 08/04/19 07:59 15:59 23:59 Intake Total 700 / 2120 1420 / 2120 Output Total 1200 / 1200 Balance -500 / 920 1420 / 920 Intake: IV Fluids 700 / 800 100 / 800 Unasyn 1,500 MG In 0.9 % Sodium 200 / 300 100 / 300 Chloride (Mini-Bag +) 100 ML @ 200 mls/hr IVPB Q6H [facility] Rx#: [id number] [employer] 2 EACH In 0.9 % Sodium 500 / 500 Chloride 250 ML @ 250 mls/hr IVPB Q6H [facility] Rx#:[id number] Oral 1320 / 1320 Output: Urine 1200 / 1200 Other: Meal Lunch Percent of Meal Consumed 100% Weight 78.9 kg Patient Weight 08/04/19 23:59 Weight 78.9 kg - Labs CBC & BMP: 08/04/19 00:40 08/04/19 00:40 Labs: Abnormal lab results WBC 14.0 K/mcL (4.3-11.1) H 08/04/19 00:40 Hgb 12.7 g/dL (12.9-16.9) L D 08/04/19 00:40 MPV 9.3 fL (9.4-12.4) L 08/03/19 15:08 Neutrophils # 12.8 K/mcL (1.6-8.9) H 08/04/19 00:40 APTT 36.8 Seconds (26.0-36.0) H 08/03/19 16:28 Fibrinogen 431 mg/dL (169-393) H 08/03/19 15:08 Sodium 133 mEq/L (136-145) L 08/04/19 00:40 BUN 31 mg/dL (6-20) H 08/04/19 00:40 BUN/Creatinine Ratio 30 (6-26) H 08/04/19 00:40 Glucose 200 mg/dL (70-105) H 08/04/19 00:40 [place] < 0.1 mEq/L (0.6-1.2) L 08/04/19 00:40 Consult Discharge Plan - Plan Referrals: Quyen Okeefe CNP [Advanced Practice Nurse] - 08/11/19 11:00 am
[2019-08-04 20:49] LABS: Bilirubin,Urine Negative (Negative); Blood,Urine Negative (Negative); Clarity,Urine Clear (Clear); Color,Urine Yellow (Yellow); Glucose,Urine (UA) Normal (Normal); Ketones,Urine Negative (Negative); Leukocyte Esterase,Urine Negative (Negative); Nitrite,Urine Negative (Negative); PH,Urine 6.5 pH Units (5.0-8.0); Protein,Urine Negative (Neg-Trace); Specific Gravity,Urine 1.025 (1.010-1.025); Urobilinogen,Urine Normal (Normal)
[2019-08-05] MEDS: Ampicillin/Sulbactam 1,500 MG in 0.9 % Sodium Chloride Mini Bag 100 ML IVPB SCH ×2 (01:13→06:24)
[2019-08-05 01:22] LABS: Hemoglobin 11.4 g/dL (12.9-16.9); Red Blood Count 3.67 M/mcL (4.19-5.50); White Blood Count 12.6 K/mcL (4.3-11.1)
[2019-08-05 01:23] LABS: Basophils % 0.3 %; Eosinophils # 0.1 K/mcL (0.0-0.6); Immature Granulocytes % 0.3 % (0-4); Lymphocytes # 3.6 K/mcL (0.6-4.6); Lymphocytes % 28.8 %; Mean Corpuscular HGB Conc 32.6 g/dL (31.6-35.5); Mean Corpuscular Hemoglobin 31.1 pg (28.0-33.3); Mean Corpuscular Volume 95.4 fL (83.0-100.0); Mean Platelet Volume 9.1 fL (9.4-12.4); Monocytes # 1.1 K/mcL (0.0-1.3); Monocytes % 8.4 %; Neutrophils # 7.7 K/mcL (1.6-8.9); Platelet Count 176 K/mcL (140-400); Segmented Neutrophils % 61.2 %
[2019-08-05 01:41] LABS: Blood Urea Nitrogen 23 mg/dL (6-20); Calcium 8.2 mg/dL (8.6-10.3); Carbon Dioxide 24 mEq/L (23-29); Chloride 109 mEq/L (98-107); Glucose 89 mg/dL (70-105); Osmolality,Calculated 291 (280-300); Potassium 4.5 mEq/L (3.5-5.1); Sodium 139 mEq/L (136-145)
[2019-08-05 01:44] LABS: INR 0.9; Prothrombin Time 10.7 Seconds (9.4-12.1)
[2019-08-05 01:45] LABS: Amphetamine Screen,Urine Negative ng/mL (Cutoff=1000); Barbiturate Screen,Urine Negative ng/mL (Cutoff=200); Benzodiazepines Screen,Urine Negative ng/mL (Cutoff=200); Cannabinoid Screen,Urine Negative ng/mL (Cutoff = 50); Cocaine Screen,Urine Negative ng/mL (Cutoff= 300); Opiate Screen,Urine Negative ng/mL (Cutoff=300); Phencyclidine Screen,Urine Negative ng/mL (Cutoff=25)
[2019-08-05 01:46] LABS: BUN/Creatinine Ratio 32 (6-26); eGFR For African Americans > 60 (> 60); eGFR For Non-African Americans > 60 (> 60)
[2019-08-05 07:19] VITALS: BP 132/87
[2019-08-05] MEDS ORDERED: traMADol 50 MG TABLET PO PRN (07:55)
--- NOTE | 2019-08-05 08:39 | Orthopedics Progress Note ---
Date of Encounter: 08/05/19 Time of Encounter: 08:37 - Assessment and Plan (1) Venomous snake bite Current Visit: Yes Status: Resolved Qualifiers: Encounter type: subsequent encounter Injury intent: accidental or unintentional Qualified Code(s): T63.001D - Toxic effect of unspecified snake venom, accidental (unintentional), subsequent encounter Subjective Interval history: S: The patient is resting comfortably with improved pain to the right index finger O: Afebrile on the vital signs are stable Continued improvement of the right index finger regarding swelling. Moderate tenderness as expected distally with slight altered sensation at the tip. Otherwise neurovascularly intact to the right upper extremity A: Snake bite to the right index finger; pain and swelling improving P: Continue observation and elevation with IV pulse sling. Orthopedically stable for discharge Recommend discharge on Augmentin for infection prophylaxis I did discuss aggressive elevation at home Follow up with me in the office in 1 week for a clinical reevaluation or sooner if needed. I did discuss with the patient daily dressing changes with gauze and [place]. I did instruct the patient to keep the wound clean and dry. Objective Vital signs: Vital Signs Temp Pulse Resp BP Pulse Ox 08/05/19 08:05 74 08/05/19 07:16 97.6 F 73 16 132/87 96 08/05/19 03:47 98.1 F 69 16 106/63 95 08/04/19 23:03 98 F 86 17 110/56 95 08/04/19 18:51 98.3 F 81 17 127/76 93 08/04/19 15:42 98.6 F 82 16 111/63 92 08/04/19 11:05 97.8 F 82 14 109/65 90 Intake and Output 08/04/19 08/05/19 08/05/19 23:59 07:59 15:59 Intake Total 580 / 2700 320 / 320 Output Total 1924 Balance -145 / 775 -1630 / -1630 Intake: IV Fluids 100 / 900 200 / 200 Unasyn 1,500 MG In 0.9 % Sodium 100 / 400 200 / 200 Chloride (Mini-Bag +) 100 ML @ 200 mls/hr IVPB Q6H [facility] Rx#: [id number] Oral 480 / 1800 120 / 120 Output: Urine 725 / 1925 1950 / 1950 Other: Meal Dinner Percent of Meal Consumed 100% - Labs CBC & BMP: 08/05/19 01:11 08/05/19 01:11 Labs: Abnormal lab results WBC 12.6 K/mcL (4.3-11.1) H 08/05/19 01:11 RBC 3.67 M/mcL (4.19-5.50) L 08/05/19 01:11 Hgb 11.4 g/dL (12.9-16.9) L 08/05/19 01:11 Hct 35.0 % (37.5-50.1) L 08/05/19 01:11 MPV 9.1 fL (9.4-12.4) L 08/05/19 01:11 Neutrophils # 12.8 K/mcL (1.6-8.9) H 08/04/19 00:40 APTT 36.8 Seconds (26.0-36.0) H 08/03/19 16:28 Fibrinogen 431 mg/dL (169-393) H 08/03/19 15:08 Sodium 133 mEq/L (136-145) L 08/04/19 00:40 Chloride 109 mEq/L (98-107) H 08/05/19 01:11 BUN 23 mg/dL (6-20) H 08/05/19 01:11 BUN/Creatinine Ratio 32 (6-26) H 08/05/19 01:11 Glucose 200 mg/dL (70-105) H 08/04/19 00:40 Calcium 8.2 mg/dL (8.6-10.3) L 08/05/19 01:11 [place] < 0.1 mEq/L (0.6-1.2) L 08/04/19 00:40 Consult Discharge Plan - Plan Referrals: Quyen Okeefe, PANCHO [Advanced Practice Nurse] - 08/11/19 11:00 am
--- NOTE | 2019-08-05 09:07 | Discharge Summary ---
- NOTES TO OUTPATIENT PROVIDER Notes to Outpatient Provider: Pt admitted with copperhead snake bite. Received antivenom. To follow with Dr. Raphael outpatient. Date of Encounter: 08/05/19 Time of Encounter: 08:45 - Discharge Diagnosis (1) Venomous snake bite Priority: Primary Status: Resolved Qualifiers: Encounter type: subsequent encounter Injury intent: accidental or unintentional Qualified Code(s): T63.001D - Toxic effect of unspecified snake venom, accidental (unintentional), subsequent encounter (2) Tobacco abuse Priority: Secondary Status: Chronic Hospital course: Mr. Smith is a 49 year old male with hx of psychiatric illness transferred from [facility] with copperhead snake bite. Mr Smith was working in a yard and moved a woodpile and was bitten by copperhead snake. He went to [facility] ED and received first dose of antivenom and transferred to [facility]. He was placed in stepdown and received second dose of antivenom. He had slow improvement and was seen by orthopedics for wound management. He completed course of antivenom and was treated with IV Unasyn. Today he is slowly improving. He is afebrile and will be discharged home on PO abx and pain control. He is to follow with Dr. Raphael in 1 week. Discharge discussed with: patient Time spent discussing smoking cessation with patient: 3 to 10 minutes - Time Spent with Patient Total time spent providing and/or coordinating discharge services: 39min - Discharge Medications Prescriptions: New Amoxicillin/Clavulanate [Augmentin] 875 mg PO BIDWM #15 tablet HYDROcodone/Acet 5/325 mg [[place] 5-325 mg] 1 tab PO Q6H PRN 3 Days #15 tab PRN Reason: moderate to severe pain Acetaminophen [Tylenol] 650 mg PO Q6HR PRN tablet PRN Reason: Mild Pain/Fever Continued Levothyroxine [Synthroid] 88 mcg PO DAILY Discontinued FLUoxetine HCl [Prozac] 20 mg PO DAILY Ibuprofen 800 mg PO TID PRN PRN Reason: Pain lamoTRIgine [Lamictal] 100 mg PO BID [place] Carbonate 600 mg PO TID Quetiapine Fumarate 200 mg PO HS SUMAtriptan succinate [Imitrex] 25 mg PO Q2H PRN PRN Reason: Migraine Headache Zolpidem Tartrate 5 mg PO HS PRN PRN Reason: Sleep Home Medications: Levothyroxine [Synthroid] 88 mcg PO DAILY 08/03/19 [History] Acetaminophen [Tylenol] 650 mg PO Q6HR PRN tablet 08/05/19 [Rx] Amoxicillin/Clavulanate [Augmentin] 875 mg PO BIDWM #15 tablet 08/05/19 [Rx] HYDROcodone/Acet 5/325 mg [[place] 5-325 mg] 1 tab PO Q6H PRN 3 Days #15 tab 08/05/19 [Rx] Allergies/Adverse Reactions: Allergy/AdvReac Type Severity Reaction Status Date / Time No Known Allergies Allergy Verified 06/09/17 23:43 Date of admission: 08/03/19 17:43 Primary care physician: PCP NONE Consults: 08/04/19 09:41 Consult to Psychiatry [CONS] Routine Consulting Provider: Psychiatry Elsa Reason consult: Medication recommendation Other reason and/or additional details: stopped taking meds 5 days ago, which include: Sumatriptan 50mg Lamotrigine 25mg [place] 600mg Fluoxetine 20mg Quetiapine 200mg Discharging clinician: Ricardo Reid Anticipated date of discharge: 08/05/19 - Constitutional Vitals: Temp Pulse Resp BP Pulse Ox 97.6 F 74 16 132/87 96 08/05/19 07:16 08/05/19 08:05 08/05/19 07:16 08/05/19 07:16 08/05/19 07:16 General appearance: Present: A&O X 3, answers questions appropriately Exam: See below - Head Head exam: Present: atraumatic, normocephalic - Eye Eye exam: Present: EOMI, conjuntiva pink - ENT ENT exam: Present: normal exam - Neck Neck exam general surgery: Present: supple - Respiratory Respiratory exam: Present: CTAB. Absent: rales, rhonchi, wheezes - Cardiovascular Cardiovascular exam: Present: RRR. Absent: tachycardia - GI/Abdominal GI/Abdominal exam: Present: soft. Absent: tenderness - Extremities Exam Extremities exam: Present: tenderness, warm Additional comments: Dressing intact R index finger - Neurological Exam Neurological exam: Present: alert, oriented X3 - Skin Skin exam: Present: dry, warm - Patient Status Disposition: Home, Self-Care Functional capacity at discharge: independent ambulation Overall status at discharge: patient is progressing back to baseline - Discharge Instructions Instructions: Hydrocodone/Acetaminophen (By mouth), Amoxicillin/Clavulanate Potassium (By mouth), Snake Bite (GEN) Follow Up With: Quyen Okeefe CNP [Advanced Practice Nurse] - 08/11/19 11:00 am Benja Raphael MD [Partnered Physician] - 08/11/19 9:10 am Additional Instructions: Wound care as per Dr. Raphael. Follow up with Dr. Raphael in one week. - Diet and Activity Activity: increase activity as tolerated Diet: advance to your usual diet
== END 2019-08-05 10:12 | disposition home or self-care (01) | DRG 816 ==
LOC: 2NNU → SUATTDRO 13:56
PROVIDERS: ADMIT Internal Medicine; ATTEND Internal Medicine

== ENCOUNTER 2020-01-25 12:19 | Observation (INO) ==
[2020-01-25] MEDS ORDERED: Naloxone 0.4 MG/ML INJ IVP PRN ×2 (15:27→20:29)
[2020-01-25 16:46] LABS: INR 1.1
[2020-01-25] MEDS ORDERED: QUEtiapine Fumarate 100 MG TABLET PO SCH (18:00)
[2020-01-25] MEDS ORDERED: FLUoxetine 20 MG CAPSULE PO SCH (18:00)
[2020-01-25] MEDS ORDERED: Ampicillin/Sulbactam 3,000 MG in 0.9 % Sodium Chloride Mini Bag 100 ML IVPB SCH (18:00)
[2020-01-25] MEDS ORDERED: Albuterol 2.5 MG/3 ML NEBULIZER IH ONE ×2 (18:07→20:29)
[2020-01-25] MEDS ORDERED: Lidocaine 1% 20 ML MDV ONE (18:12)
[2020-01-25] MEDS ORDERED: Vancomycin 1,000 MG VIAL ONE (18:12)
[2020-01-25] MEDS ORDERED: Albuterol 2.5 MG/3 ML NEBULIZER ONE (18:17)
[2020-01-25] MEDS ORDERED: Ondansetron 4 MG/2 ML VIAL IVP ONE ×2 (18:21→20:29)
[2020-01-25] MEDS ORDERED: *HR* Promethazine 25 MG/ML VIAL IVP PRN ×2 (18:21→20:29)
[2020-01-25] MEDS ORDERED: *HR* OxyCODONE Immed Rel 5 MG TABLET PO PRN ×2 (18:21→20:29)
[2020-01-25] MEDS ORDERED: *HR* HYDROmorphone PF 0.5 MG/0.5 ML SYRINGE IVP PRN ×2 (18:21→20:29)
[2020-01-25] MEDS ORDERED: *HR* Meperidine 25 MG/ML SYRINGE IVP PRN ×2 (18:21→20:29)
[2020-01-25] MEDS ORDERED: Dexamethasone 4 MG/ML VIAL ONE (18:38)
[2020-01-25] MEDS ORDERED: *HR* FentaNYL (PF) 100 MCG/2 ML VIAL ONE (18:38)
[2020-01-25] MEDS ORDERED: Lidocaine -MPF 2% 2 ML VIAL ONE (18:38)
[2020-01-25] MEDS ORDERED: *HR* Propofol 200 MG/20 ML VIAL IVP ONE (18:38)
[2020-01-25] MEDS ORDERED: metroNIDAZOLE 500 MG TABLET PO SCH (21:00)
[2020-01-25] MEDS ORDERED: lamoTRIgine 100 MG TABLET PO SCH (21:00)
[2020-01-25] MEDS: metroNIDAZOLE 500 MG TABLET PO SCH (22:32)
[2020-01-25] MEDS: lamoTRIgine 100 MG TABLET PO SCH (22:32)
[2020-01-25] MEDS: QUEtiapine Fumarate 100 MG TABLET PO SCH (22:32)
[2020-01-25] MEDS: FLUoxetine 20 MG CAPSULE PO SCH (22:32)
[2020-01-25] MEDS: Ampicillin/Sulbactam 3,000 MG in 0.9 % Sodium Chloride Mini Bag 100 ML IVPB SCH (23:52)
[2020-01-26 06:15] LABS: Basophils % 0.3 %; Eosinophils % 0.1 %; Hematocrit 36.9 % (37.5-50.1); Hemoglobin 12.3 g/dL (12.9-16.9); Immature Granulocytes % 0.3 % (0-4); Lymphocytes # 0.9 K/mcL (0.6-4.6); Lymphocytes % 9.9 %; Mean Corpuscular HGB Conc 33.3 g/dL (31.6-35.5); Mean Corpuscular Hemoglobin 30.8 pg (28.0-33.3); Mean Corpuscular Volume 92.3 fL (83.0-100.0); Mean Platelet Volume 9.5 fL (9.4-12.4); Monocytes # 0.4 K/mcL (0.0-1.3); Neutrophils # 7.4 K/mcL (1.6-8.9); Platelet Count 200 K/mcL (140-400); Red Cell Distribution Width 12.5 % (11.5-14.5); Segmented Neutrophils % 85.4 %; White Blood Count 8.7 K/mcL (4.3-11.1)
[2020-01-26] MEDS: Ampicillin/Sulbactam 3,000 MG in 0.9 % Sodium Chloride Mini Bag 100 ML IVPB SCH ×4 (06:30→23:13)
[2020-01-26 06:44] LABS: BUN/Creatinine Ratio 23 (6-26); Blood Urea Nitrogen 19 mg/dL (6-20); Carbon Dioxide 26 mEq/L (23-29); Chloride 105 mEq/L (98-107); Glucose 121 mg/dL (70-105); Osmolality,Calculated 288 (280-300); Potassium 4.5 mEq/L (3.5-5.1); Sodium 137 mEq/L (136-145); eGFR For African Americans > 60 (> 60); eGFR For Non-African Americans > 60 (> 60)
[2020-01-26] MEDS: Nicotine 21 MG PATCH.TD24 TD SCH (08:53)
[2020-01-26] MEDS: metroNIDAZOLE 500 MG TABLET PO SCH ×3 (08:53→20:30)
[2020-01-26] MEDS ORDERED: Nicotine 21 MG PATCH.TD24 TD SCH (09:00)
[2020-01-26] MEDS: QUEtiapine Fumarate 100 MG TABLET PO SCH (17:25)
[2020-01-26] MEDS: FLUoxetine 20 MG CAPSULE PO SCH (17:25)
[2020-01-26] MEDS: lamoTRIgine 100 MG TABLET PO SCH (20:30)
[2020-01-27 02:38] LABS: Basophils % 0.4 %; Eosinophils # 0.2 K/mcL (0.0-0.6); Eosinophils % 2.1 %; Hematocrit 36.7 % (37.5-50.1); Hemoglobin 11.7 g/dL (12.9-16.9); Immature Granulocytes % 0.3 % (0-4); Lymphocytes # 2.9 K/mcL (0.6-4.6); Lymphocytes % 37.6 %; Mean Corpuscular HGB Conc 31.9 g/dL (31.6-35.5); Mean Corpuscular Hemoglobin 30.1 pg (28.0-33.3); Mean Corpuscular Volume 94.3 fL (83.0-100.0); Mean Platelet Volume 9.5 fL (9.4-12.4); Monocytes # 0.6 K/mcL (0.0-1.3); Monocytes % 7.4 %; Platelet Count 170 K/mcL (140-400); Red Blood Count 3.89 M/mcL (4.19-5.50); Red Cell Distribution Width 12.8 % (11.5-14.5); Segmented Neutrophils % 52.2 %; White Blood Count 7.6 K/mcL (4.3-11.1)
[2020-01-27] MEDS: Ampicillin/Sulbactam 3,000 MG in 0.9 % Sodium Chloride Mini Bag 100 ML IVPB SCH ×4 (05:39→23:14)
[2020-01-27] MEDS: metroNIDAZOLE 500 MG TABLET PO SCH ×3 (08:08→19:36)
[2020-01-27] MEDS: Nicotine 21 MG PATCH.TD24 TD SCH (08:08)
[2020-01-27] MEDS: QUEtiapine Fumarate 100 MG TABLET PO SCH (17:57)
[2020-01-27] MEDS: FLUoxetine 20 MG CAPSULE PO SCH (17:57)
[2020-01-27] MEDS: lamoTRIgine 100 MG TABLET PO SCH (19:36)
[2020-01-28] MEDS: Ampicillin/Sulbactam 3,000 MG in 0.9 % Sodium Chloride Mini Bag 100 ML IVPB SCH ×2 (05:40→11:14)
[2020-01-28] MEDS: metroNIDAZOLE 500 MG TABLET PO SCH (07:53)
[2020-01-28 11:41] VITALS: BP 150/86
== END 2020-01-28 13:00 | disposition home health service (06) ==
LOC: 3NENU → SUATTDRO 13:47
PROVIDERS: ADMIT Internal Medicine; ATTEND Internal Medicine